=== PATIENT | female | born 1950 | race Caucasian/White ===

== ENCOUNTER → 2017-12-04 10:32 | Outpatient (CLI) | payer MEDICARE, SELFPAY ==
--- NOTE | 2017-12-04 10:37 | RAD_ITS ---
STUDY: X-RAY - LEFT FEMUR REASON FOR STUDY: Female, 67 years old. Pain TECHNIQUE: Radiological exam, femur, minimum 2 views COMPARISON: None. FINDINGS: There is fixation at the proximal left femur. There is osteoarthritis of the left hip. There is mild degenerative spurring at the knee. There is chondrocalcinosis. RAD/Femur Min 2 Views IMPRESSION: ORIF, proximal femur Osteoarthritis of the left hip Mild degenerative changes with evidence of CPPD, left knee Electronically Signed: Preet Pepe MD at 21:42 EST Tel , Service support ,
--- NOTE | 2017-12-04 10:37 | RAD_ITS ---
STUDY: X-RAY - LUMBOSACRAL SPINE REASON FOR EXAM: Female, 67 years old. Lower back and left leg pain. TECHNIQUE: 6 view(s) of the lumbosacral spine including lateral flexion and extension views were obtained. COMPARISON: None FINDINGS: There is generalized osteopenia. Normal lumbar lordosis. 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 There is normal alignment of the vertebrae. There is limited flexion and extension with no abnormal motion. Normal vertebral bodies and endplates. There is diffuse intervertebral disc space narrowing with osteophyte formation most marked at L4-5 and L5-S1. Normal bilateral sacral ala, sacroiliac joints, and visualized sacrum. Incidentally noted is osteoarthrosis of both hips with a cancellous screw within the left hip. Normal visualized soft tissue structures. RAD/L/S Spine Comp/w Bending Views IMPRESSION: Osteopenia with lumbar spondylosis as described. Limited flexion and extension with no abnormal motion. Electronically Signed: Sean Martinez MD at 12:21 EST , Service support ,
== END ==
PROVIDERS: Visit Provider Orthopaedic Surgery
DX: M25.552 Pain in left hip (principal); M79.605 Pain in left leg
CPT/HCPCS: 72114; 73552

== ENCOUNTER → 2023-03-28 | Outpatient (CLI) | payer MEDICARE, SELFPAY ==
--- NOTE | 2023-03-28 15:22 | RAD_ITS ---
INDICATION: ABD BLOATING/CONSTIPATION EXAMINATION/TECHNIQUE: X-RAY - XR Abdomen W/ Decub and/or Erect Views COMPARISON: FINDINGS: BOWEL GAS PATTERN: Non-obstructive. No bowel or stomach distention. FREE AIR: No evidence for free air identified ORGANOMEGALY: Not seen. CALCIFICATIONS: No abnormal calcifications observed. LOWER CHEST: No acute pathology. BONES AND SOFT TISSUES: Bilateral hip replacements are identified bones and heart are grossly in anatomic alignment. There is mild levoscoliosis.. RAD/Abd Inc Decub and/or Erect IMPRESSION: Non-obstructive bowel gas pattern. Electronically Signed: Morris Gaspar, at 18:05 EDT ,
== END | disposition home or self-care (01) ==
LOC: MTRAD 15:18
PROVIDERS: Referring Provider Internal Medicine Gastroenterology; Visit Provider Internal Medicine Gastroenterology
DX: R14.0 Abdominal distension (gaseous) (principal); K59.00 Constipation, unspecified
CPT/HCPCS: 74019